=== PATIENT | male | born 1950 | race Caucasian/White ===

== ENCOUNTER → 2018-04-28 | Outpatient (CLI) | payer OTHER ==
[~2018-04-28] VITALS: Ht 185.4 cm; Wt 108.9 kg
[~2018-04-28] MED LIST: TRAMADOL 50 MG50 MG PO; TYLENOL325 MG PO
--- NOTE | ~2018-04-28 | PATH ---
[facility] [address] [place] [address] PATHOLOGY RPT PROCEDURE Name: BERTOKWAKU Marquita Room #: REG [facility] Enedina.#: [id number] Admission: 04/28/18 Date of : 52 Discharge: Report #: [id number] Path Case #: [id number] [facility] Accession Number: [id number] . 01 Material submitted: . ASCENDING POLYP . 01 Clinical history: . Pre-OP DX: Screening Post-OP DX: Polyp . 02 Diagnosis: "Ascending polyp biopsy": - No tissue is seen on the glass slide. (SHA:wilfredo; 04/29/18) [facility]/04/29/2018 . 02 Comment: Suggest clinical correlation. The tissue did not survive processing. (SHA:wilfredo; 04/29/2018) . 02 Electronically signed: . Toni Mathis MD, Pathologist NPI- [id number] . 01 Gross description: . Received in formalin labeled "Kwaku Thomson, ascending colon polyp," are multiple minute segments of pepe soft tissue measuring 0.1 x 0.1 x 0.1 cm in aggregate dimensions. The specimen is filtered and entirely submitted in cassette A1. Due to the minute nature the specimen, it may not survive processing. (TSD; 04/28/2018) TOB/TOB . 02 Pathologist provided ICD-10: K63.5 . 02 CPT . 722865 Specimen Comment: A courtesy copy of this report has been sent to Specimen Comment: [phone], . Specimen Comment: Report sent to / DR COSTELLO Specimen Comment: A duplicate report has been generated due to demographic updates. Performed at: [address] [id number] PATHOLOGY RPT PROCEDURE Name: KWAKU THOMSON Room #: REG CLI [facility].#: [id number] Admission: 04/28/18 Date of : 52 Discharge: Report #: [id number] Path Case #: [id number] [address] [address], [place], [place] [id number] MD Houston Yap MD Phone: [phone] Performed at: [address] [id number] MD Gabrielle Khan MD Phone: [phone]
== END | disposition home or self-care (01) ==
LOC: GI 11:33
DX: Z12.11 Encounter for screening for malignant neoplasm of colon (principal); K63.5 Polyp of colon; K64.8 Other hemorrhoids; K57.30 Diverticulosis of large intestine without perforation or abscess without bleeding; E78.5 Hyperlipidemia, unspecified; Z98.890 Other specified postprocedural states; E66.09 Other obesity due to excess calories; Z79.899 Other long term (current) drug therapy; Z68.31 Body mass index [BMI] 31.0-31.9, adult
CPT/HCPCS: 62110; 62900